=== PATIENT | female | born 1995 | race Caucasian/White ===

== ENCOUNTER 2017-09-30 12:40 | Emergency (ER) | payer MEDICAID ==
[2017-09-30 12:47] VITALS: O2SAT 100
[2017-09-30] MEDS ORDERED: Sodium Chloride 0.9% 500 ML IV ONE (13:29)
--- NOTE | 2017-09-30 13:33 | C.PDOC ---
History Of Present Illness <Jl Cornell - Last Filed: 09/30/17 14:49> <Aurora Mccurdy - Last Filed: 09/30/17 14:55> 21 year old female with past medical history of Crohn's disease diagnosed at the age of 13 presents to the ER for diffuse abdominal pain. Patient states the pain started yesterday morning after eating pizza for breakfast at 11am. Patient states at that time her abdomen was distended all day and she has had about 10x episodes of diarrhea. Patient denies blood in her stool. She states she has not been on her Crohn's medication for the past 3 years due to social issues. However she states she has an appointment set with a GI specialist Dr. Dillon ([place]) next Saturday. Patient states she has not eaten anything since yesterday evening as she has also had some nausea. Past Surgical History: Appendectomy (2011); Intestinal Resection (2011) (Aurora Mccurdy) <Jl Cornell - Last Filed: 09/30/17 14:49> <Aurora Mccurdy - Last Filed: 09/30/17 14:55> Time Seen by Provider: 09/30/17 13:04 Chief Complaint (Nursing): Abdominal Pain Past Medical History - Medical History PMH: Asthma, Crohn's Disease Surgical History: Appendectomy Family History: States: Unknown Family Hx - Social History Hx Alcohol Use: Yes Hx Substance Use: No <Aurora Mccurdy - Last Filed: 09/30/17 14:55> Vital Signs: Last Vital Signs Temp 98.2 F 09/30/17 14:52 Pulse 57 L 09/30/17 14:52 Resp 16 09/30/17 14:52 BP 100/67 09/30/17 14:52 Pulse Ox 100 09/30/17 14:52 Review Of Systems Constitutional: Negative for: Fever, Chills Cardiovascular: Negative for: Chest Pain, Palpitations Respiratory: Negative for: Shortness of Breath Gastrointestinal: Positive for: Nausea, Abdominal Pain, Diarrhea. Negative for : Vomiting, Constipation, Melena, Hematochezia, Hematemesis <Aurora Mccurdy - Last Filed: 09/30/17 14:55> Physical Exam - Physical Exam Appears: Well, Non-toxic, No Acute Distress Skin: Normal Color Head: Atraumatic, Normacephalic Eye(s): bilateral: Normal Inspection, PERRL, EOMI Oral Mucosa: Dry Cardiovascular: Rhythm Regular Respiratory: Normal Breath Sounds Gastrointestinal/Abdominal: Bowel Sounds, Soft, No Tenderness, Mass, No Distention, No Guarding <Aurora Mccurdy - Last Filed: 09/30/17 14:55> ED Course And Treatment - Laboratory Results Result Diagrams: 09/30/17 13:38 09/30/17 13:38 <Jl Cornell - Last Filed: 09/30/17 14:49> - Laboratory Results Result Diagrams: 09/30/17 13:38 09/30/17 13:38 Urine POC: Negative O2 Sat by Pulse Oximetry: 100 <Aurora Mccurdy - Last Filed: 09/30/17 14:55> Medical Decision Making: diarrhea poor food choices GI f/u assured. diet choices reviewed (Jl Cornell) Disposition Doctor Will See Patient In The: Office Counseled Patient/Family Regarding: Studies Performed, Diagnosis - Disposition Disposition Time: 14:49 <Jl Cornell - Last Filed: 09/30/17 14:49> Discussed With Dr.: Jl Cornell Doctor Will See Patient In The: ED <Aurora Mccurdy - Last Filed: 09/30/17 14:55> - Disposition Referrals: [facility] [Outside] [facility] [Outside] Kianna Velazquez MD [Medical Doctor] - John Barajas Jr., MD [Medical Doctor] - Additional Instructions: diet choices for Crohn's Dz outpatient follow-up with your PMD/Claims Collector If you seen local PMD and GI please contact Dr. Barajas (PMD) and Dr. Velazquez (GI) for further consultation Call for appointments Instructions: Diarrhea in Adolescents and Adults, Crohn's Disease in Adults Forms: [facility] (Danish) - Clinical Impression Clinical Impression: Diarrhea - PA / MANAGER OF MARKETING / Resident Statement / has reviewed & agrees with the documentation as recorded. / has examined the patient and agrees with the treatment plan. <Aurora Mccurdy - Last Filed: 09/30/17 14:55>
[2017-09-30 13:42] LABS: BASO % 0.4 % (0.0-2.0); EOS % 0.4 % (0.0-4.0); LYMPH % 24.7 % (20.0-40.0); MEAN CELL VOLUME 88.9 fL (81.0-99.0); MEAN CORPUSCULAR HEMOGLOBIN 29.7 pg (27.0-31.0); MEAN CORPUSCULAR HGB CONC 33.4 g/dL (33.0-37.0); MEAN PLATELET VOLUME 9.1 fL (7.2-11.7); MONO # 0.6 K/uL (0.0-0.8); MONO % 7.9 % (0.0-10.0); NEUT # 5.4 K/uL (1.8-7.0); NEUT % 66.6 % (50.0-75.0); RBC 4.03 Mil/uL (3.80-5.20); RED CELL DISTRIBUTION WIDTH 12.8 % (11.5-14.5); WHITE BLOOD COUNT 8.2 K/uL (4.8-10.8)
[2017-09-30 13:49] LABS: HCG,QUALITATIVE URINE NEGATIVE (NEGATIVE)
[2017-09-30 13:53] LABS: SQUAMOUS EPITHIAL 13 /hpf (0-5); URINE BACTERIA RARE (<OCC); URINE BILIRUBIN NEGATIVE (NEGATIVE); URINE BLOOD NEGATIVE (NEGATIVE); URINE CLARITY Hazy (Clear); URINE COLOR Yellow (YELLOW); URINE GLUCOSE (UA) NORMAL (Normal); URINE LEUKOCYTE ESTERASE TRACE Leu/uL (Negative); URINE PROTEIN NEGATIVE (NEGATIVE); URINE UROBILINOGEN NORMAL mg/dL (0.2-1.0)
[2017-09-30 13:57] LABS: ALB/GLOB RATIO 1.4 (1.0-2.1); ALT/SGPT 23 U/L (9-52); AST/SGOT 15 U/L (14-36); BLOOD UREA NITROGEN 13 mg/dL (7-17); CALCIUM 9.5 mg/dl (8.6-10.4); GFR AFRICAN-AMERICAN > 60; GFR NON-AFRICAN AMERICAN > 60
[2017-09-30 14:52] VITALS: BP 100/67; PULSE 57; RESP 16; TEMP 98.2
--- NOTE | 2017-09-30 15:53 | RAD ---
Abdomen three views History: Crohn's disease. Comparison: None available. Findings: Lung saxena are clear. Heart size within normal limits. Mild fecal retention in the rectum. Few mildly distended loops of small bowel in the upper and mid abdomen. Impression: Nonspecific bowel gas pattern with a few mildly distended loops of small bowel in the upper and mid abdomen. Clinical correlation.
== END 2017-09-30 15:05 | disposition home or self-care (01) ==
LOC: C.ER 12:40
DX: R19.7 Diarrhea, unspecified (principal)
CPT/HCPCS: 74022; 80053; 81001; 84703; 85025; 99285; J7040